=== PATIENT | male | born 2005 | race Hispanic/Latino ===

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

== ENCOUNTER 2025-09-20 14:33 | Emergency (ER) | payer SELFPAY ==
[~2025-09-20] VITALS: Ht 175.3 cm; Wt 99.8 kg
--- NOTE | 2025-09-20 14:50 | ERN ---
ED Note History of Present Illness Stated Complaint: FALL Chief Complaint: Mechanical Fall Time Seen by MD: 14:39 Time Seen by Midlevel: 14:40 Dictation: Mr. Shine is a 1-year-old male with no reported chronic health issues who presented to the emergency department this afternoon for evaluation of rib/chest pain. He states that two days ago he tripped and fell forward striking his chest onto a counter top/sink. He complains of right sided chest/rib pain. He states he has pain with deep inspiration and he has tenderness upon palpation. He denies additional injury. He denies fever, chills, shortness of breath, cough, chest pain, palpitations, edema, abdominal pain, nausea, vomiting, hematemesis, constipation, diarrhea, melena, hematochezia, dysuria, headache, dizziness, or focal weakness/paresthesia Allergies: Coded Allergies: Penicillins (Unverified Allergy, Unknown, 03/01/20) Home Meds Active Scripts Ibuprofen (Ibuprofen) 600 Mg Tablet, 600 MG PO Q6H PRN for PAIN, #12 TAB 0 Refills Prov:LUCIA MCLEOD Joseluis CARMEN 09/20/25 Past Medical History Past Medical History: No Pertinent History Surgical History: None PSYCH History: no pertinent psych hx Social History: Negative, Lives with family RN Note Reviewed/Agreed w/PFSH: Yes Review of System Dictation REVIEW OF SYSTEMS: CONSTITUTIONAL: Patient denies fevers, chills, sweats and weight changes. EYES: Patient denies any visual symptoms. EARS, NOSE, AND THROAT: No difficulties with hearing. No symptoms of rhinitis or sore throat. CARDIOVASCULAR: Patient denies chest pains, palpitations, orthopnea and paroxysmal nocturnal dyspnea. RESPIRATORY: No dyspnea on exertion, no wheezing or cough. Reports right chest wall/rib pain. Reports pain with deep inspiration. GI: No nausea, vomiting, diarrhea, constipation, abdominal pain, hematochezia or melena. : No urinary hesitancy or dribbling. No nocturia or urinary frequency. No abnormal urethral discharge. MUSCULOSKELETAL: No myalgias or arthralgias. NEUROLOGIC: No chronic headaches, no seizures. Patient denies numbness, tingling or weakness. PSYCHIATRIC: Patient denies problems with mood disturbance. No problems with anxiety. ENDOCRINE: No excessive urination or excessive thirst. DERMATOLOGIC: Patient denies any rashes or skin changes. Initial Vital Sign VS Vital Signs Date Time Temp Pulse Resp B/P (MAP) Pulse Ox O2 Delivery O2 Flow Rate FiO2 09/20/25 14:34 99.3 78 16 131/86 98 Room Air 0 09/20/25 15:56 21 Physical Exam Dictation Vital signs: Reviewed. Constitutional: No acute distress. Non-toxic appearing. Head/Face: Normocephalic, atraumatic. Eyes: Periorbital areas with no swelling, redness, or edema. Lids and lashes are normal. Conjunctival injection is absent. Sclera anicteric. Pupils equal, round, reactive to light. ENT: Pinnas intact and no signs of trauma or erythema. Ear canals clear and no discharge. TMs no erythema. No nasal discharge or bleeding noted. Oropharynx with no exudate, redness, swelling, masses, exudates, or evidence of obstruction. Uvula midline. Mucous membranes moist. Neck: Trachea midline, no masses palpated, and no cervical lymphadenopathy. No swelling. Supple, full range of motion. Chest/Axilla: No tenderness, no crepitus, no paradoxical movement, no retractions. Cardiovascular: Regular rate, regular rhythm, no murmur, no gallops. Symmetric pulses. No peripheral edema. Respiratory: Respirations even and unlabored. Lung sounds clear; no wheezes, rales or rhonchi. Room air SpO2 100% there is focal tenderness to palpation over the right upper lateral ribs. There was no crepitus, step-offs, or deformity appreciated. There was no visible bruising or swelling. No increased work of breathing. Gastrointestinal: Inspection is normal. No distention is appreciated. Bowel sounds are normal. No mass or organomegaly . There is no tenderness. No rebound. No rigidity. No voluntary or involuntary guarding. No Lee's sign. Neurological: Normal speech, gross motor function intact, gross sensory function intact. No focal weakness/Paresthesia. Musculoskeletal/Extremities: All extremities have full range of motion, no pain or tenderness on palpation. Symmetric pulses. Integumentary: Intact. Skin is normal color, warm and dry. Cap refill less than 2 seconds. Results (Laboratory/Radiology) X-RAY Comment: PATIENT: DEE DEE SHINE JR MR#: [id number] : 2005 SEX: M AGE: 20 LOCATION: [facility] ORDER 1450 STATUS: REG ER REPORT#: [id number] SERVICE [id number] REASON: fall/right sided chest pain ORDERING PHYSICIAN: LUCIA MCLEOD [employer] PROCEDURE: CXR2VW - CHEST 2VWS EXAM: CR Chest, 2 View. CLINICAL HISTORY: fall/right sided chest pain COMPARISON: None provided. FINDINGS: LUNGS: The lungs show no infiltrate or other acute finding. PLEURAL SPACES: No evidence of pleural effusion or pneumothorax. MEDIASTINUM: The cardiomediastinal silhouette is within normal limits. BONES: No aggressive appearing osseous lesion seen. IMPRESSION: No acute cardiopulmonary pathology is evident. /[place] DICTATED BY: FABIAN ANNE MD DATE: 09/20/251620 ELECTRONICALLY SIGNED BY: FABIAN ANNE MD DATE: 09/20/251620 ED Course ED Course Uneventful ED course. Patient received doses Flexeril and [place] x1 for discomfort. He endorses improvement of pain. Vital signs remained stable; room air SpO2 99%. Chest x-ray unremarkable no fracture rib. Lung rayo are clear. Discharge instructions reviewed regarding pain control, breathing exercises, activity modification, and return precautions patient verbalizes understanding. Medical Decision Making MDM MDM: Differential diagnosis: Pes wall contusion, intercostal muscles strain, occult rib fracture, costochondral injury, pulmonary contusion, pneumothorax Rationale: Tests considered and ordered secondary to shared decision making include: X-ray Previous outside records reviewed: Old ER visits. Risk of complication and/or morbidity or mortality of patient management: None Medications-Per medication reconciliation Need for hospitalization: Patient does not meet criteria for hospitalization. Need for emergency major/minor surgery: No There are no social concerns with this patient. Prescription drug management: Ibuprofen Prescriptions will include symptomatic care Patient's prior external medical records from other ER visits were reviewed by me as indicated. Prior testing and results from previous visits were reviewed. Prior tests were taken into account with medical decision making and resource utilization, independent historian/historians were used to obtain complete medical history. I independently interpreted the test that were performed, results were reviewed by me and considered findings on radiology if ordered. Medical management and examination interpretation discussions were had by me with other qualified healthcare professionals as indicated for the patient's care. DX & DISP Disposition: Discharge Departure Impression: Primary Impression: Contusion, chest wall Additional Impression: rib strain Condition: Stable Scripts Ibuprofen (Ibuprofen) 600 Mg Tablet 600 MG PO Q6H PRN for PAIN, #12 TAB 0 Refills Prov: MANDYLUCIA SANTOS Joseluis CARMEN 09/20/25 Additional Instructions: Your injury involves the muscles and soft tissues around the ribs. Rib and chest wall pain can be quite painful, especially with movement, coughing, or deep breath. Pain typically improves over 1-3 weeks. He received [place] and Flexeril in the ED for pain and muscle spasm. At home take ibuprofen as directed for pain and inflammation. Take with food. You may alternate with Tylenol if needed. Apply ice to the area for 15-20 minutes at a time, 3-4 times daily for the 1st 48 hours. After 48 hours heat may be helpful for muscle soreness. Avoid heavy lifting, strenuous activity, or contact sports until pain improves. Gentle movement is encourage-avoid complete immobilization. Do not stay in bed. Take slow, deep breaths several times per hour while awake. This helps prevent lung complications such as pneumonia. You may splint the area (hold a pillow against her chest) when coughing or taking deep breaths. Resume normal activities as tolerated. Avoid activities at significantly increased pain. Return to work when comfortable avoid heavy physical activity. Return to the emergency department immediately if you have worsening chest pain, shortness of breath/trouble breathing, fever/chills, coughing up blood, increased bruising/swelling, dizziness/fainting, or pain not controlled with medication. Follow up with your primary care provider if pain persists beyond 1-2 weeks or worsens. Your imaging today was normal. Pain is expected to improve gradually. Referrals: SELF,REFERRAL (PCP) Time of Disposition: 15:59 ATTESTATION BY PHYSICIAN I PERFORMED THE SUBSTANTIVE PORTION OF THE VISIT. I HAVE REVIEWED AND PERSONALLY MADE AND APPROVED THE MANAGEMENT PLAN THAT IS DOCUMENTED IN THE NOTE BY MYSELF FOR THE A PP. LUCIA MCLEOD Sep 20, 2025 14:50 MARGARETTE HUBBARD MD Sep 24, 2025 07:46
--- NOTE | 2025-09-20 15:22 | HMCIMG ---
EXAM: CR Chest, 2 View. CLINICAL HISTORY: fall/right sided chest pain COMPARISON: None provided. FINDINGS: LUNGS: The lungs show no infiltrate or other acute finding. PLEURAL SPACES: No evidence of pleural effusion or pneumothorax. MEDIASTINUM: The cardiomediastinal silhouette is within normal limits. BONES: No aggressive appearing osseous lesion seen. IMPRESSION: No acute cardiopulmonary pathology is evident. /[place]
[2025-09-20] MEDS: HYDROcodone/APAP 5/325 1 TAB TABLET PO ONE (15:25)
[2025-09-20] MEDS: CYCLOBENZAPRINE HCL 10 MG TABLET PO ONE (15:25)
[2025-09-20 15:56] VITALS: BP 131/86; PULSE 78; RESP 16; TEMP 99.3; O2SAT 98
== END 2025-09-20 16:12 | disposition home or self-care (01) ==
LOC: EDH 14:33
DX: S29.011A Strain of muscle and tendon of front wall of thorax, initial encounter (principal); S20.219A Contusion of unspecified front wall of thorax, initial encounter; Z88.0 Allergy status to penicillin; W19.XXXA Unspecified fall, initial encounter; Y93.89 Activity, other specified; Y92.89 Other specified places as the place of occurrence of the external cause; Y99.8 Other external cause status
CPT/HCPCS: 71046; 99283